=== PATIENT | female | born 1970 | race African-American/Black ===

== ENCOUNTER 2018-10-31 11:33 | Emergency (ER) | END 2018-10-31 13:04 | disposition home or self-care (01) ==

== ENCOUNTER 2019-01-14 21:27 | Emergency (ER) | payer SELFPAY ==
[~2019-01-14] VITALS: Wt 106.5 kg
[~2019-01-14 21:27] MED LIST: AZIT250T PO; D-ME473S2 PO
[2019-01-15] MEDS ORDERED: KETOROLAC 30 MG INJ IM STA (03:03)
--- NOTE | 2019-01-15 03:06 | ERD ---
ER Documentation Chief Complaint Chief Complaint bib self, cc: left leg pain, chronic, HPI 48-year-old female, presents to the emergency department, complaining of left popliteal pain that started 1 day ago. According to the patient, this pain is new, no history of trauma. The pain is dull, constant, 7/10, worsened by flexion and ambulation. No fever, no chills. The patient denies history of malignancy, hormone replacement therapy or prolonged immobilization. She also denies chest pain or shortness of breath. No medications taken at this time for pain. ROS All systems reviewed and are negative except as per history of present illness. Medications Home Meds Active Scripts Ibuprofen* (Motrin*) 400 Mg Tab, 400 MG PO Q8, #20 TAB Prov:NICOLETTE LEWIS MD 01/15/19 Hydrocodone/Acetaminophen (Foster 5-325 Tablet) 1 Each Tablet, 1 TAB PO Q6H PRN for PAIN, #12 TAB Prov:NICOLETTE LEWIS MD 01/15/19 Dextromethorphan Hb-Promethazine Hcl* (Promethazine DM* Syrup) 473 Ml Syrup, 5 ML PO Q6 PRN for COUGH for 5 Days, ML Prov:BRAYAN HERNANDEZ MD 10/31/18 Azithromycin* (Zithromax*) 250 Mg Tablet, 250 MG PO .ZPACK DIRECTED, #6 TAB TAKE 500 MG (2 TABS) THE FIRST DAY THEN 250 MG (1 TAB) DAYS 2-5 Prov:BRAYAN HERNANDEZ MD 10/31/18 Allergies Allergies: Coded Allergies: No Known Allergy (Unverified , 10/31/18) PMhx/Soc History of Surgery: Yes (Uterine Fibroid Removed) Anesthesia Reaction: No Hx Neurological Disorder: No Hx Respiratory Disorders: Yes (URIs) Hx Cardiac Disorders: No Hx Psychiatric Problems: No Hx Miscellaneous Medical Probl: No Hx Alcohol Use: No Hx Substance Use: No Hx Tobacco Use: Yes (Cigars 8/day) Smoking Status: Current every day smoker FmHx Family History: No diabetes, No coronary disease Physical Exam Vitals Vital Signs Date Temp Pulse Resp B/P (MAP) Pulse Ox O2 O2 Flow FiO2 Time Delivery Rate 01/15/19 97.4 71 18 146/74 99 Room Air 06:10 (98) 3/4/19 98.2 88 19 147/84 100 21:38 (105) Physical Exam Const: No acute distress Head: Atraumatic Eyes: Normal Conjunctiva ENT: Normal External Ears, Nose and Mouth. Neck: Full range of motion. No meningismus. Resp: Clear to auscultation bilaterally Cardio: Regular rate and rhythm, no murmurs Abd: Soft, non tender, non distended. Normal bowel sounds Skin: No petechiae or rashes Back: No midline or flank tenderness Ext: Left knee: Normal inspection, tenderness to palpation of the popliteal fossa, distal neurovascular exam intact. Neur: Awake and alert Psych: Normal Mood and Affect Results 24 hrs Laboratory Tests Test 01/15/19 04:44 01/15/19 04:45 Bedside Urine pH (LAB) 5.5 Bedside Urine Protein (LAB) Negative Bedside Urine Glucose (UA) Negative Bedside Urine Ketones (LAB) Negative Bedside Urine Blood Negative Bedside Urine Nitrite (LAB) Negative Bedside Urine Leukocyte Esterase (L Negative POC Beta HCG, Qualitative NEGATIVE Current Medications Medications Dose Sig/Fer Start Time Status Last (Trade) Ordered Route PRN Stop Time Admin Dose Reason Admin Ketorolac 30 mg ONCE STAT 01/15/19 DC 01/15/19 Tromethamine IM 03:03 01/15/19 04:58 (Toradol) 03:14 1 tab ONCE ONCE 01/15/19 DC 01/15/19 Acetaminophen PO 03:30 01/15/19 04:57 / 03:31 Hydrocodone Bitart (Foster (5/325)) Patient: ALEXEI ISLAS : 1970 Age: 48 Sex: F MR #: [id number] DOS: 01/15/19 0303 Ordering MD: NICOLETTE LEWIS MD Location: [facility] Room/Bed: PROCEDURE: US left Lower extremity Venous. CLINICAL INDICATION: Pain TECHNIQUE: Multiple sonographic images of the left lower extremity deep venous system was obtained utilizing grayscale, color-flow, compressive sonography and doppler imaging with augmentation. COMPARISON: None. FINDINGS: There is normal compressibility and flow within the left common femoral, deep femoral, superficial femoral, posterior tibial, peroneal and popliteal veins. IMPRESSION: No sonographic evidence for deep venous thrombosis of the left lower extremity. RPTAT:AAJJ Physician Austin Date Time Electronically viewed and signed by Physician Austin on 01/15/2019 04:16 BM/ CC: NICOLETTE LEWIS MD DIAGNOSTIC IMAGING REPORT Patient: ALEXEI ISLAS : 1970 Age: 48 Sex: F MR #: [id number] DOS: 01/15/19 0303 Ordering MD: NICOLETTE LEWIS MD Location: [facility] Room/Bed: PROCEDURE: Left knee series CLINICAL INDICATION: Pain TECHNIQUE: AP axial, AP and lateral views of the left knee were obtained COMPARISON: None FINDINGS: No evidence of acute fracture or dislocation. Bony mineralization is normal. No focal bony blastic or lytic lesions. No evidence of a left knee joint effusion. Soft tissues are unremarkable. IMPRESSION: No evidence acute fracture dislocation or joint effusion. RPTAT:AAJJ Physician Austin Date Time Electronically viewed and signed by Physician Austin on 01/15/2019 04:15 Procedures/MDM Acute left leg pain: no red flags. Differential diagnosis include but not limited to: Musculoskeletal injury, arthritis, fracture, DVT; low suspicion for acute limb ischemia, septic arthritis, necrotizing fasciitis, compartment syndrome. Neurovascular exam grossly intact. no clinical findings suggestive of acute infectious process, no acute deformity, no edema, no rashes. Pertinent Data: X-rays: No fracture or dislocation. Venous Doppler: Negative for DVT. Physical examination and clinical presentation consistent most likely with acute derangement of the left knee. During the ED course the patient received treatment with Toradol IM presenting overall improvement of the symptoms. Results and clinical impression discussed with the patient who agrees with management. The patient is stable to be treated outpatient and will be discharged home with recommendations for ice, rest and NSAIDs 3 times daily for 5 days and close monitoring. The patient was instructed to follow up with the primary care provider in the next 48h. If symptoms persist, worsen or new symptoms develop, then patient should return to the ED immediately. Instructions explained and given to patient with acknowledgment and demonstrated understanding. Disclaimer: Inadvertent spelling and grammatical errors are likely due to EHR/dictation software use and do not reflect on the overall quality of patient care. Also, please note that the electronic time recorded on this note does not necessarily reflect the actual time of the patient encounter. Departure Diagnosis: Primary Impression: Derangement of left knee Condition: Stable Additional Instructions: Thank you very much for allowing us to participate in your care. Your health and safety is our top priority at [facility]. Call your primary care doctor TOMORROW for an appointment during the next 2-4 days and bring all the information and medications prescribed. Have prescriptions filled and follow precisely the directions on the label. If the symptoms get worse and your provider is unavailable, return to the Emergency Department immediately. NICOLETTE LEWIS MD Jan 15, 2019 03:06
[2019-01-15] MEDS ORDERED: HYDROCODONE/APAP (5/325) TAB PO ONE (03:30)
[2019-01-15] MEDS ORDERED: IBUP-1561 PO (04:36)
[2019-01-15] MEDS ORDERED: HYDR-4011 PO (04:36)
[2019-01-15 06:10] VITALS: BP 146/74; PULSE 71; RESP 18
== END 2019-01-15 06:10 | disposition home or self-care (01) ==
LOC: FTE 21:27
DX: M23.92 Unspecified internal derangement of left knee (principal); F17.210 Nicotine dependence, cigarettes, uncomplicated
CPT/HCPCS: 73562; 81003; 81025; 93971; 96372; 99285; J1885

== ENCOUNTER 2019-06-09 21:10 | Emergency (ER) | payer SELFPAY ==
[~2019-06-09] VITALS: Ht 157.5 cm; Wt 105.8 kg
[~2019-06-09 21:10] MED LIST changes: +BENZ-6 PO; +HYDR-4011 PO; +IBUP-1561 PO; +IBUP800T48 PO
[2019-06-09 21:12] VITALS: Ht 157.5 cm; Wt 105.8 kg
--- NOTE | 2019-06-09 21:30 | ERD ---
ER Documentation Chief Complaint Chief Complaint bib [id number] c/o flu like symptoms x 3 days HPI This is a 48-year-old female presents here in the emergency department for productive cough for about 3 days. LMP: Unknown. Denies headache, head injury, loss of consciousness, dizziness, neck pain, neck stiffness, throat pain, difficulty swallowing, difficulty breathing lying flat, shoulder pain, chest pain, back pain, abdominal pain, nausea, vomiting, constipation, diarrhea, urinary symptoms, or possibility being , loss of bowel and bladder control, trauma, injury, falls, difficulty walking due to pain, numbness or tingling sensation, calf pain, recent travel, recent major surgery in the last 3 weeks, calf pain, recent long travel, recent exposure to any illness, recent antibiotic use in the last 3 months, fever, chills, seizures. Past medical history: Arthritis. Sciatica. Surgical history: Denies. Social: Denies smoking, use of alcoholic beverages, use of illegal drugs. ROS All systems reviewed and are negative except as per history of present illness. Medications Home Meds Active Scripts Ibuprofen* (Motrin*) 800 Mg Tab, 800 MG PO Q6H PRN for PAIN AND OR ELEVATED TEMP, #30 TAB Prov:BAILEE BROWN 06/09/19 Benzonatate* (Tessalon Perle*) 100 Mg Capsule, 100 MG PO Q8H PRN for COUGH, #15 CAP Prov:BAILEE BROWN 06/09/19 Azithromycin* (Zithromax*) 250 Mg Tablet, 250 MG PO .ZPACK DIRECTED, #6 TAB TAKE 500 MG (2 TABS) THE FIRST DAY THEN 250 MG (1 TAB) DAYS 2-5 Prov:BAILEE BROWN 06/09/19 Ibuprofen* (Motrin*) 400 Mg Tab, 400 MG PO Q8, #20 TAB Prov:NICOLETTE LEWIS MD 01/15/19 Hydrocodone/Acetaminophen (Eldred 5-325 Tablet) 1 Each Tablet, 1 TAB PO Q6H PRN for PAIN, #12 TAB Prov:NICOLETTE LEWIS MD 01/15/19 Dextromethorphan Hb-Promethazine Hcl* (Promethazine DM* Syrup) 473 Ml Syrup, 5 ML PO Q6 PRN for COUGH for 5 Days, ML Prov:BRAYAN HERNANDEZ MD 10/31/18 Azithromycin* (Zithromax*) 250 Mg Tablet, 250 MG PO .ZPACK DIRECTED, #6 TAB TAKE 500 MG (2 TABS) THE FIRST DAY THEN 250 MG (1 TAB) DAYS 2-5 Prov:BRAYAN HERNANDEZ MD 10/31/18 Allergies Allergies: Coded Allergies: No Known Allergy (Unverified , 10/31/18) PMhx/Soc History of Surgery: Yes (Uterine Fibroid Removed) Anesthesia Reaction: No Hx Neurological Disorder: No Hx Respiratory Disorders: Yes (URIs) Hx Cardiac Disorders: No Hx Psychiatric Problems: No Hx Miscellaneous Medical Probl: No Hx Alcohol Use: No Hx Substance Use: No Hx Tobacco Use: Yes (Cigars 8/day) Physical Exam Vitals Vital Signs Date Temp Pulse Resp B/P (MAP) Pulse Ox O2 O2 Flow FiO2 Time Delivery Rate 06/09/19 98.7 78 16 122/84 99 Room Air 22:50 (97) 06/09/19 98.8 91 18 125/69 97 21:12 (87) Physical Exam Head: Atraumatic Eyes: Normal Conjunctiva ENT: Normal External Ears, Nose and Mouth. Bilateral ears: TMs are not erythematous. No bleeding. No discharge. No hearing loss. No mastoid tenderness. Nose: There is no frontal or maxillary sinus tenderness palpation. Throat: Uvula is in midline and nondisplaced. Tonsils are +1 bilaterally without redness and without exudates. Tolerating secretions. Patent airway. Speaks full and clear sentences. No tripoding. Neck: Full range of motion. No meningismus. No nuchal rigidity. No signs of meningeal irritation. Resp: Clear to auscultation bilaterally. No accessory muscle use in breathin g. Cardio: Regular rate and rhythm, no murmurs Abd: Soft, non tender, non distended. Normal bowel sounds. Negative Dejesus sign. Skin: No petechiae or rashes. Color appears normal for ethnicity. No skin tenting. No signs of severe dehydration. Back: No midline or flank tenderness Ext: No cyanosis, or edema Neur: Awake and alert. No neurological deficits. Psych: Normal Mood and Affect Results 24 hrs Current Medications Medications Dose Sig/Fer Start Time Status Last (Trade) Ordered Route PRN Stop Time Admin Dose Reason Admin 500 mg ONCE ONCE 06/09/19 DC 06/09/19 Azithromycin PO 22:00 21:57 (Zithromax) 06/09/19 22:01 Guaifenesin 200 mg ONCE ONCE 06/09/19 DC 06/09/19 (Robitussin PO 22:00 21:57 Liquid Cup) 06/09/19 22:01 Procedures/MDM Diagnostic tests: Clinical exam. Treatment: Azithromycin. Robitussin. Re-evaluation: Denies chest pain. Respirations even and unlabored. No accessory muscle use in breathing. Lung sounds are clear to auscultation. No drooling. Speaks full and clear sentences. No neurological deficits. Stated that she feels much better this time and that she is ready to be discharged. Stated that she is comfortable to be discharged. Differential diagnosis I have low suspicion for sepsis, meningitis, mastoiditis, peritonsillar abscess, pneumonia, severe dehydration, bronchospasms. Final diagnosis: Bronchitis. Prescription: Azithromycin. Katelyn Wiley. Motrin. Follow-up with PCP in the next 24-48 hours. Come back here in the emergency department for any new symptoms or any worsening symptoms. All questions and concerns were answered. Patient and family members verbalized understanding and agreed with plan of care. Hemodynamically stable on discharge. Departure Diagnosis: Primary Impression: Bronchitis Condition: Stable Additional Instructions: Follow-up with PCP in the next 24-48 hours. Come back here in the emergency department for any new symptoms or any worsening symptoms. BAILEE BROWN Jun 09, 2019 21:30
[2019-06-09] MEDS ORDERED: AZITHROMYCIN 500 MG TAB PO ONE (22:00)
[2019-06-09] MEDS ORDERED: GUAIFENESIN 20 MG/ML 5ML CUP PO ONE (22:00)
[2019-06-09 22:50] VITALS: BP 122/84; PULSE 78; RESP 16
== END 2019-06-09 22:51 | disposition home or self-care (01) ==
LOC: FTE 21:10
DX: J40 Bronchitis, not specified as acute or chronic (principal); Z87.891 Personal history of nicotine dependence
CPT/HCPCS: 99283